=== PATIENT | female | born 1990 | race Caucasian/White ===

== ENCOUNTER → 2024-07-29 08:53 | Outpatient (CLI) | payer OTHER, SELFPAY ==
[2024-07-29 09:51] LABS: Add Manual Diff / Slide Review NO; Basophils Absolute Auto 0 /uL (0-100); Basophils Percent Auto 0.6 % (0-2); Eosinophils Absolute Auto 100 /uL (0-450); Hematocrit 39.2 % (36-46); Hemoglobin 13.7 g/dL (12.0-16.0); Lymphocytes Absolute Auto 1800 /uL (1100-4500); Lymphocytes Percent Auto 32.4 % (25-40); Mean Corpuscular HGB Conc 34.9 % (30-36); Mean Corpuscular Hemoglobin 32.5 PG (26-34); Mean Corpuscular Volume 93.1 fL (80-100); Monocytes Absolute Auto 500 /uL (0-900); Neutrophils Absolute Auto 3100 /uL (1500-7000); Platelet Count 249 X10^3/uL (150-400); Red Blood Cell Count 4.21 X10^6/uL (4.0-5.2); Red Cell Distribution Width 12.8 % (11.6-14.8); White Blood Cell Count 5.5 X10^3/uL (4.5-11.0)
[2024-07-29 10:01] LABS: Hemoglobin A1C% w Est Avg Glu 5.5 % (4.0-6.0)
[2024-07-29 10:12] LABS: Alanine Aminotransferase 41 IU/L (<35); Albumin 4.3 g/dL (3.5-5.0); Albumin Globulin Ratio 1.7 (1.0-2.8); Alkaline Phosphatase 59 U/L (38-126); Aspartate Aminotransferase 37 IU/L (14-36); BUN Creatinine Ratio 18.9 (6-22); Bilirubin Total 1.3 mg/dL (0.2-1.3); Blood Urea Nitrogen 14 mg/dL (7-17); Calcium 9.7 mg/dL (8.4-10.2); Carbon Dioxide 27 mmol/L (22-32); Chloride 105 mmol/L (98-107); Cholesterol 165 mg/dL (140-199); Estimated Glomerular Filt Rate > 60 mL/min (>60); Globulin 2.6 g/dL (1.7-4.1); Glucose 105 mg/dL (70-100); HDL Cholesterol 41 mg/dL (40-60); HEMOLYSIS < 15 (0-50); LDL Cholesterol Calculated 107 mg/dL (<100); Sodium 138 mmol/L (137-145); Total Protein 6.9 g/dL (6.3-8.2); Triglycerides 83 mg/dL (35-150)
[2024-07-30 04:01] LABS: HEMOLYSIS < 15 (0-50); Iron 128 ug/dL (37-170)
[2024-07-30 04:10] LABS: Transferrin 219 mg/dL (206-381)
[2024-07-30 04:22] LABS: Percent Iron Saturation 46 % (15-50); Total Iron Binding Capacity 280 ug/dL (265-497)
[2024-07-30 04:34] LABS: TSH w/ Reflex to FT4 1.67 uIU/mL (0.47-4.68)
== END ==
LOC: LAB 08:54
PROVIDERS: PCP Family Medicine; Referring Provider Family Medicine; Visit Provider Family Medicine
DX: R51.9 Headache, unspecified (principal); Z76.89 Persons encountering health services in other specified circumstances; Z78.9 Other specified health status; Z83.3 Family history of diabetes mellitus; G89.29 Other chronic pain; Z87.42 Personal history of other diseases of the female genital tract; Z97.5 Presence of (intrauterine) contraceptive device; Z13.220 Encounter for screening for lipoid disorders; Z68.30 Body mass index [BMI] 30.0-30.9, adult; Z13.1 Encounter for screening for diabetes mellitus
CPT/HCPCS: 36415; 80053; 80061; 83036; 83540; 83550; 84443; 85025

== ENCOUNTER → 2024-09-09 15:15 | Outpatient (CLI) | payer OTHER, SELFPAY ==
--- NOTE | 2024-09-09 15:27 | DIET.OUTPTC ---
Dietary Outpatient Consultation Note Consultation Date: 09/09/2024 Assessment: 34 y F referred to dietitian for BMI 30.0-30.9, obesity, Ada presents via telehealth to discuss nutritional guidance for weight management. Reports family hx DM, got Dexcom placed at PCP today. A1c% this Oct was 5.5%. Reports trial of numerous diets in the past including Keto, intermit. fasting, juice cleanse, small freq meals (x6 meals/day) with no significant or lasting results. Has previously worked long days in [employer] industry, which resulted in no time for eating during the day. Has different job with breaks and opportunities to eat now. Notes she has no appetite most of the time making it difficult to follow hunger/fullness cues. Notes she often eats 1 meal a day or even goes a day without eating. Typically follows low carb eating style. CHO leads to increased acid reflux symptoms. Cutting back on caffeine. Is open to re-establishing eating during the day. PCP told her in appt today to aim for meal with 20 g protein before noon. Open to considering weight loss medications. Reports ongoing daily acid reflux, regular BMs. Diet recall: Up 6-7am-if eating something- granola bar or protein shake (protein shake has 42 g protein) 2p break-sometimes leftovers or sandwich comes home from work at 8p-sometimes skips due to dislike eating late at night/discomfort Ht: 5 ft 3 in Wt: 170 lb BMI: 30.1 UBW: - Nutrition Diagnosis: Nutrition related knowledge deficit r/t needing nutrition reccs aeb pt assessment Interventions: discussed the following: -educ on CHO breakdown and role in BG, consistent meals for BG management -important meal components for balanced meals -creating sustainable eating patterns/intuitive eating -fibrous foods, recc amounts Goals: consistent meals or snacks starting with breakfast (i.e fruit and yogurt smoothies, granola bar), including fibrous source at each meal (i.e fiber source with a protein drinks), hunger/fullness scale at meals Will discuss activity at f/u EER: 50-60 g protein (.8-1 g/kg), [id number], 25-27 g fiber Monitoring/Evaluations: f/u in 2-3 wks to assess dexcom data and discuss consistent dinner as work schedule changes to getting off earlier Electronically Signed by: Yoli Mariscal 09/09/24 15:27 Clinical Dietitian [address] [address]
== END ==
LOC: DIET 15:16
PROVIDERS: PCP Family Medicine; Referring Provider Family Medicine
DX: E66.9 Obesity, unspecified (principal); Z68.30 Body mass index [BMI] 30.0-30.9, adult; Z71.3 Dietary counseling and surveillance; Z83.3 Family history of diabetes mellitus
CPT/HCPCS: 97802

== ENCOUNTER → 2024-09-17 06:46 | Outpatient (CLI) | payer OTHER, SELFPAY ==
--- NOTE | 2024-09-17 06:47 | DI.US.S_ITS ---
PROCEDURE: US PELVIC COMPLETE INDICATIONS: concern for PCOS TECHNIQUE: Real-time scanning was performed of the pelvic organs, with image documentation. Additional endovaginal scanning was necessary due to incomplete visualization of the adnexal and endometrial structures by transabdominal scanning. COMPARISON: None. FINDINGS: Uterus: Uterus is anteverted and normal in size at 5.4 x 2.9 x 3.6 cm. The myometrium is homogeneous. The endometrium measures 2.9 mm combined thickness. Intrauterine device appears in appropriate position. Ovaries: The right ovary measures 2.7 x 3.0 x 1.5 cm, with a calculated ovarian volume of 6.4 cc. The left ovary measures 3.0 x 1.5 x 2.3 cm, with a calculated ovarian volume of 5.2 cc. The ovaries have a normal sonographic appearance. Greater than 12 follicles can be seen in each ovary. No adnexal masses are seen. Other: No pathologic free abdominal or pelvic fluid. IMPRESSION: Greater than 12 sub follicular cysts bilaterally which can be associated with polycystic ovarian morphology, recommend clinical correlation. We strive to produce accurate, complete, and clear reports of imaging services. To assist us in improving patient care, this report was composed using standard report templates and voice recognition software. Therefore, it may contain abnormal punctuation, insertions and/or omissions. Occasional wrong-word or sound-alike substitutions may occur. Though we review the report and make efforts to correct it, we do recommend that the report be read carefully in proper context to recognize any text inaccuracies. Dictated by: Dwight Guerra M.D. on 09/17/2024 at 10:05 Approved by: Dwight Guerra M.D. on 09/17/2024 at 10:06
== END ==
LOC: US 06:47
PROVIDERS: PCP Family Medicine; Referring Provider Family Medicine; Visit Provider Family Medicine
DX: Z97.5 Presence of (intrauterine) contraceptive device (principal); Z87.42 Personal history of other diseases of the female genital tract; Z31.41 Encounter for fertility testing
CPT/HCPCS: 36415; 76830; 76856; 84402; 84403

== ENCOUNTER → 2024-09-30 13:00 | Outpatient (CLI) | payer OTHER, SELFPAY ==
--- NOTE | 2024-10-07 15:43 | DIET.OUTPTC ---
Dietary Outpatient Consultation Note Consultation Date: 09/30/2024 Assessment: 34 y F referred to dietitian for BMI 30.0-30.9, obesity, Ada presents via telehealth. Discussed dexcom data. FBG 80-90s, postprandial <140, 1-2x in 140s. Has started at gym again. 3-4x/wk for 1 hour + walks 1/2 to 1 mile daily. Is eating 3x/day now. Only 1 meal on weekends, not hungry. Yogurt, half protein shake, apple Lunch and dinner are chicken, 1/2 med potato, salad Ht: 5 ft 3 in Wt: 170 lb BMI: 30.1 UBW: - Nutrition Diagnosis: Nutrition related knowledge deficit r/t needing nutrition reccs aeb pt assessment Interventions: -Continue with current goals and plan -Discussed nutrition r/t to PCOS -Will consider food journal with portion sizes for 4-7 days in future as needed Goals: consistent meals or snacks, 5 servings fruits and vegetables, fibrous CHO, continued physical activity, eat before exercise on weekends EER: 50-60 g protein (.8-1 g/kg), MSJ [id number], 25-27 g fiber Monitoring/Evaluations: f/u 6-8 wks Electronically Signed by: Yoli Mariscal 10/07/24 15:43 Clinical Dietitian [address] [address]
== END ==
LOC: DIET 10-07 15:42
PROVIDERS: PCP Family Medicine; Referring Provider Family Medicine
DX: E66.9 Obesity, unspecified (principal); Z68.30 Body mass index [BMI] 30.0-30.9, adult; Z71.3 Dietary counseling and surveillance
CPT/HCPCS: 97803

== ENCOUNTER → 2025-07-08 07:40 | Outpatient (CLI) | payer OTHER, SELFPAY ==
[2025-07-12 10:08] LABS: ANA Screen, IFA Negative (.)
== END ==
PROVIDERS: PCP Family Medicine; Referring Provider Family Medicine; Visit Provider Physician Assistant Surgical
DX: M25.561 Pain in right knee (principal); M25.562 Pain in left knee
CPT/HCPCS: 36415; 85651; 86038; 86140; 86200; 86430

== ENCOUNTER → 2025-07-11 09:24 | Outpatient (CLI) | payer OTHER, SELFPAY ==
--- NOTE | 2025-07-11 09:25 | DI.MRI.S_ITS ---
PROCEDURE: MR KNEE LT WO CON INDICATIONS: right knee pain TECHNIQUE: Noncontrast sagittal PD fast spin echo and T2 fast spin echo with fat saturation, sagittal 3-D FLASH with fat saturation; coronal T1 spin echo and PD fast spin echo with fat saturation, and axial PD fast spin echo with fat saturation through the knee. COMPARISON: [facility], CR, ORTHO-XR KNEE WB BILAT, 07/06/2025, 11:41. FINDINGS: Image quality: Excellent. Menisci: The medial and lateral menisci demonstrate normal morphology and internal signal. The meniscal root ligaments appear intact. Cruciate ligaments: The anterior and posterior cruciate ligaments appear intact. Medial structures: The medial collateral ligament appears intact. Visualized portions of the pes anserinus tendons appear normal . There is a small amount of medial bursal fluid. Lateral structures: The lateral collateral ligament, long and short heads of the biceps femoris tendon appear intact. The popliteus tendon appears normal. Iliotibial band appears normal. Anterior structures: The quadriceps and patellar tendons appear intact. Lateral patellar subluxation. Lateral ventral trochlear prominence. Severe edema within the superolateral aspect of the infrapatellar fat pad. Bones and cartilage: No bone marrow contusions or fractures. The cartilage of the medial and lateral femorotibial compartments, as well as the patellofemoral compartment, appears normal in thickness. Joint space: There is a small knee joint effusion and a trace Jones's cyst. Normal appearing synovial plicae are incidentally noted. IMPRESSION: 1. No internal derangement. 2. Findings consistent with lateral patellofemoral friction syndrome in the appropriate clinical setting. 3. Medial bursitis. 4. Knee joint effusion and trace Jones's cyst. Dictated by: Abhishek Arteaga M.D. on 07/12/2025 at 13:51 Approved by: Abhishek Arteaga M.D. on 07/12/2025 at 13:54
== END ==
PROVIDERS: PCP Family Medicine; Referring Provider Family Medicine; Visit Provider Physician Assistant Surgical
DX: M70.52 Other bursitis of knee, left knee (principal); M25.462 Effusion, left knee; M25.562 Pain in left knee; M25.561 Pain in right knee
CPT/HCPCS: 73721

== ENCOUNTER → 2025-08-22 15:39 | Outpatient (CLI) | payer OTHER, SELFPAY ==
--- NOTE | 2025-08-22 15:40 | DI.MRI.S_ITS ---
PROCEDURE: MR KNEE RT WO CON INDICATIONS: right knee locking TECHNIQUE: Noncontrast sagittal PD fast spin echo and T2 fast spin echo with fat saturation, sagittal 3-D FLASH with fat saturation; coronal T1 spin echo and PD fast spin echo with fat saturation, and axial PD fast spin echo with fat saturation through the knee. COMPARISON: [facility], MR, MR KNEE LT WO CON, 07/11/2025, 9:32. FINDINGS: Image quality: Excellent. Menisci: The medial meniscus is intact. The lateral meniscus is intact. Ligaments: The ACL is intact. The PCL is intact. The MCL is intact. The LCL is intact. The posterolateral supporting structures are intact. Extensor Mechanism: Quadriceps tendon is intact. The patellar tendon is intact. The patellar retinacula are intact. Osseous Structures: There is no fracture or dislocation. No suspicious marrow replacing process. There is a trace joint effusion. Edema within the superolateral Hoffa's fat pad. Articular Cartilage: Patellofemoral compartment: Partial-thickness articular cartilage defects, thinning and fraying of the lateral patellar facet and medial patellar facet. Partial- thickness articular cartilage fraying of the inferior medial tree femoral trochlea. Medial compartment: Partial-thickness thinning and fraying and defect of the mesial central condylar articular cartilage. Lateral compartment: Cartilage of the lateral tibiofemoral compartment is intact. Other: The visualized muscles and tendons appear normal for age. Tiny Jones's cyst. Normal neurovascular signal. Subcutaneous soft tissues appear normal. IMPRESSION: 1. No internal derangement. 2. Multifocal chondral thinning, fraying, and defects of the lateral patellar facet and medial condylar articular cartilage, grade 2-3. 3. Focal edema in the superolateral Hoffa's fat pad can be seen with excessive lateral pressure syndrome. Dictated by: Humble Bui M.D. on 08/23/2025 at 13:13 Approved by: Humble Bui M.D. on 08/23/2025 at 13:19
== END ==
LOC: MRI 15:39
PROVIDERS: PCP Family Medicine; Referring Provider Physician Assistant Surgical; Visit Provider Physician Assistant Surgical
DX: M25.561 Pain in right knee (principal); M25.562 Pain in left knee; R60.0 Localized edema; G89.29 Other chronic pain
CPT/HCPCS: 73721